=== PATIENT | male | born 1985 | race Caucasian/White ===

== ENCOUNTER 2017-02-03 13:49 | Inpatient (IN) | payer MEDICAID, OTHER ==
[~2017-02-03] VITALS: Ht 195.6 cm; Wt 127.9 kg
[2017-02-03] MEDS ORDERED: PANTOPRAZOLE 40 MG INJ IV STA (14:29)
[2017-02-03] MEDS ORDERED: SOD CHLORIDE 0.9% 1,000 ML IV STA (14:29)
[2017-02-03] MEDS ORDERED: ONDANSETRON 4 MG INJ IV STA (15:17)
[2017-02-03] MEDS ORDERED: PANTOPRAZOLE IV 80 MG in SOD CHLORIDE 0.9% 100 ML IV STA (15:27)
[2017-02-03 15:47] LABS: ADD SCAN DIFF NO
[2017-02-03 15:50] LABS: BASOPHILS % 0.1 % (0.0-2.0); EOSINOPHILS % 0.1 % (0.0-7.0); HEMATOCRIT 38.4 % (42.0-52.0); HEMOGLOBIN 12.5 g/dl (14.0-18.0); LYMPHOCYTES # 1.3 10^3/ul (0.8-2.9); LYMPHOCYTES % 15.7 % (15.0-51.0); MEAN CORPUSCULAR HEMOGLOBIN 31.2 pg (29.0-33.0); MEAN CORPUSCULAR HGB CONC 32.6 g/dl (32.0-37.0); MEAN CORPUSCULAR VOLUME 95.8 fl (82.0-101.0); MEAN PLATELET VOLUME 8.8 fl (7.4-10.4); MONOCYTE # 0.5 10^3/ul (0.3-0.9); MONOCYTES % 5.8 % (0.0-11.0); NEUTROPHIL # 6.6 10^3/ul (1.6-7.5); NEUTROPHILS % 77.9 % (39.0-77.0); PLATELET COUNT 298 10^3/UL (140-415); RED BLOOD COUNT 4.01 10^6/ul (4.70-6.10); RED CELL DISTRIBUTION WIDTH 12.6 % (11.5-14.5); WHITE BLOOD COUNT 8.4 10^3/ul (4.8-10.8)
[2017-02-03 16:00] LABS: INR 1.08; PT RATIO 1.1
[2017-02-03] MEDS ORDERED: PANTOPRAZOLE 40 MG INJ IV ONE (16:00)
[2017-02-03 16:01] LABS: PARTIAL THROMBOPLASTIN TIME 24.3 Sec (25.0-35.0)
[2017-02-03 16:02] LABS: ALBUMIN 3.5 g/dl (3.3-4.9); CHLORIDE 109 mmol/L (97-110); SODIUM 147 mmol/L (135-144)
[2017-02-03 16:03] LABS: POTASSIUM 4.3 mmol/L (3.5-5.1)
[2017-02-03 16:05] LABS: ALKALINE PHOSPHATASE 51 IU/L (42-121); ANION GAP 16 (8-16); ASPARTATE AMINO TRANSFERASE 19 IU/L (15-46); BILIRUBIN,INDIRECT 0.4 mg/dl (0-1.1); BILIRUBIN,TOTAL 0.4 mg/dl (0.2-1.3); BLOOD UREA NITROGEN 33 mg/dl (7-20); CARBON DIOXIDE 26 mmol/L (21-31); CREATININE 0.89 mg/dl (0.61-1.24); GLUCOSE 105 mg/dl (70-220); TOTAL PROTEIN 6.4 g/dl (6.1-8.1)
[2017-02-03 16:06] LABS: ALANINE AMINOTRANSFERASE 35 IU/L (13-69); CALCIUM 8.3 mg/dl (8.4-10.2)
[2017-02-03 16:23] LABS: TROPONIN-I < 0.012 ng/ml (0.00-0.12)
[2017-02-03 18:00] VITALS: TEMP 98
--- NOTE | 2017-02-03 18:58 | ERA ---
ER Documentation Chief Complaint Date/Time DATE: 02/03/17 TIME: 18:55 Chief Complaint HEMATESIS X 1 TODAY HPI Patient is a 31-year-old male with back pain who presents with vomiting. The patient vomit once this morning and says that he vomited "lots of blood". He has had nausea. He has never had this before. He denies rectal bleeding. He almost passed out at home. He called 911 and was brought in by ambulance. He says that he donates plasma 1-2 times per week. He does not currently have a primary doctor. ROS All systems reviewed and are negative except as per history of present illness. Medications Home Meds No Active Prescriptions or Reported Meds Allergies Allergies: Coded Allergies: No Known Allergies (Unverified Allergy, Unknown, 02/03/17) PMhx/Soc Medical and Surgical Hx: pt denies Medical Hx, pt denies Surgical Hx Hx Alcohol Use: Yes Hx Substance Use: Yes Hx Tobacco Use: No Smoking Status: Never smoker FmHx Family History: No diabetes Physical Exam Vitals Vital Signs Date Time Temp Pulse Resp B/P Pulse Ox O2 Delivery O2 Flow Rate FiO2 02/03/17 16:00 98.0 96 15 124/67 97 Room Air 02/03/17 14:43 Nasal Cannula 2 02/03/17 14:21 98.1 113 18 106/58 99 Physical Exam Const: Mild distress Head: Atraumatic Eyes: Normal Conjunctiva ENT: Normal External Ears, Nose and Mouth. Neck: Full range of motion..~ No meningismus. Resp: Clear to auscultation bilaterally Cardio: Tachycardic rate without murmur Abd: Soft, non tender, non distended. Normal bowel sounds Skin: Pale Back: No midline or flank tenderness Ext: No cyanosis, or edema Neur: Awake and alert Psych: Normal Mood and Affect Result Diagram: 02/03/17 1530 02/03/17 1530 Results 24 hrs Laboratory Tests Test 02/03/17 15:30 Activated Partial Thromboplast Time 24.3Sec Alanine Aminotransferase (ALT/SGPT) 35IU/L Albumin 3.5g/dl Albumin/Globulin Ratio 1.20 Alkaline Phosphatase 51IU/L Anion Gap 16 Aspartate Amino Transf (AST/SGOT) 19IU/L Basophils # 0.010^3/ul Basophils % 0.1% Blood Urea Nitrogen 33mg/dl Calcium Level 8.3mg/dl Carbon Dioxide Level 26mmol/L Chloride Level 109mmol/L Creatinine 0.89mg/dl Direct Bilirubin 0.00mg/dl Eosinophils # 0.010^3/ul Eosinophils % 0.1% Globulin 2.90g/dl Glucose Level 105mg/dl Hematocrit 38.4% Hemoglobin 12.5g/dl INR International Normalized Ratio 1.08 Indirect Bilirubin 0.4mg/dl Lymphocytes # 1.310^3/ul Lymphocytes % 15.7% Mean Corpuscular Hemoglobin 31.2pg Mean Corpuscular Hemoglobin Concent 32.6g/dl Mean Corpuscular Volume 95.8fl Mean Platelet Volume 8.8fl Monocytes # 0.510^3/ul Monocytes % 5.8% Neutrophils # 6.610^3/ul Neutrophils % 77.9% Nucleated Red Blood Cells # 0.010^3/ul Nucleated Red Blood Cells % 0.0/100WBC Platelet Count 83400^3/UL Potassium Level 4.3mmol/L Prothrombin Time 14.0Sec Prothrombin Time Ratio 1.1 Red Blood Count 4.0110^6/ul Red Cell Distribution Width 12.6% Sodium Level 147mmol/L Total Bilirubin 0.4mg/dl Total Protein 6.4g/dl Troponin I < 0.012ng/ml White Blood Count 8.410^3/ul Current Medications Medications (Trade) Dose Ordered Sig/Unique Route PRN Reason Start Time Stop Time Status Last Admin Dose Admin Sodium Chloride (NS) 1,000 ml @ 1,000 mls/hr Q1H STAT IV 02/03/17 14:29 02/03/17 15:28 DC 02/03/17 15:17 Pantoprazole (Protonix Iv) 40 mg ONCE STAT IV 02/03/17 14:29 02/03/17 14:30 DC 02/03/17 16:00 Ondansetron HCl 4 mg 4 mg ONCE STAT IV 02/03/17 15:17 02/03/17 15:18 DC 02/03/17 15:34 Pantoprazole/ Sodium Chloride (Protonix Iv/NS) 100 ml @ 10 mls/hr ONCE STAT IV 02/03/17 15:27 02/04/17 01:26 02/03/17 16:00 Pantoprazole (Protonix Iv) 40 mg ONCE ONCE IV 02/03/17 16:00 02/03/17 16:01 DC 02/03/17 16:03 Procedures/MDM EKG read by me: Rate/Rhythm: Sinus tachycardia rate of 119 Intervals: Normal Impression: Tachycardia without evidence of ischemia Smoking Cessation Therapy: Pt. was lectured for greater than 3 minutes on the health risks of continued smoking and the benefits of cessation. Patient is a 31-year-old male who presents with vomiting. He vomited a large amount of blood in the emergency department that was witnessed by myself and staff. It is dark red blood and I am concerned about a potential upper GI bleed such as gastric ulcer versus gastritis. He will need admission to the hospital. Initially the patient was admitted to the intensive care unit but the patient has been in the emergency department for a number of hours and is stable and I believe downgraded to telemetry but would be appropriate. The patient is on a Protonix drip and had been given a Protonix bolus. The patient has a hemoglobin of 12.5 and a BUN creatinine ratio greater than 20. The patient will likely need GI consultation which the panel team can obtain. The patient will be admitted to Dr. Odonnell from the panel team as the patient has never been admitted before. He may benefit from endoscopy versus colonoscopy versus both. Critical Care: Time: 35 minutes excluding all billable procedures. Treatments/Evaluations: Close monitoring and treatment of unstable vital signs, cardiorespiratory, and neurologic status, while maintaining tight balance of fluid, respiratory, and cardiac interventions. Departure Diagnosis: Primary Impression: GI bleed Qualified Code: K92.2 - Gastrointestinal hemorrhage, unspecified gastrointestinal hemorrhage type Additional Impressions: Anemia Qualified Code: D64.9 - Anemia, unspecified type Hematemesis Qualified Code: K92.0 - Hematemesis with nausea Condition: Serious DARIO OSULLIVAN MD Feb 03, 2017 18:58
--- NOTE | 2017-02-03 19:13 | HP ---
Date/Time of Note Date/Time of Note DATE: 02/03/17 TIME: 19:06 Assessment/Plan VTE Prophylaxis VTE Prophylaxis Intervention: SCD's Assessment/Plan Assessment/Plan 31 yo M with 1. GI bleed / Hematemsis : acute 2. Near Syncopy 2/2 #1 3. Symptomatic Anemia 2/2 #1: tachycardia 4. Frequent alcohol / marijuana use PLAN: * admit for close monitoring / serial H / H / GI consult for possible endoscopy * IV Protonix / NPO / IVF / Banana bag * Supportive care * Transfusion of blood products PRN PROPHYLAXIS: ambulation HPI/ROS Admit Date/Time Admit Date/Time 02/03/17 Hx of Present Illness 31 yo M with no significant PMH who presents to ER with a hx of vomiting a mixture of dark red and bright red blood products. Vomiting was witnessed in ER and was said to be "a lot ". Patient does drink alcohol regularly but does not think he has an alcohol problem. He has had no bleeding per rectum or black stools. No hx of similar in the past. he does not mild epigastric tenderness. ROS 12 point review if systems was done and pertinent findings are as noted. Constitutional: fatigue, No febrile Eyes: no complaints ENT: no complaints Respiratory: No cough, No pleuritic pain, No shortness of breath, No wheezing Cardiovascular: lightheadedness, palpitations, No chest pain, No orthopenea, No paroxysmal nocturnal dyspnea Gastrointestinal: blood, nausea, passing stool, vomiting, No constipation, No diarrhea, No flatus Genitourinary: No bleeding, No discharge, No dysuria, No flank pain, No hematuria Neurologic: other (near syuncope), No focal-weakness, No headache, No syncope PMH/Family/Social Past Medical History Medical History: no pertinent history Past Surgical History Past Surgical Hx: no surgical history Family History Significant Family History: no pertinent family hx Social History Alcohol Use: occasionally Smoking Status: Never smoker Drug Use: marijuana Exam/Review of Systems Vital Signs Vitals Vital Signs Date Time Temp Pulse Resp B/P Pulse Ox O2 Delivery O2 Flow Rate FiO2 02/03/17 16:00 98.0 96 15 124/67 97 Room Air 02/03/17 14:43 2 Exam Constitutional: alert, oriented Psych: anxiety Head: normocephalic Eyes: PERRL, No icteric, No nl sclera (pale) ENMT: nl external ears & nose Neck: supple Respiratory: clear to auscultation, normal air movement Cardiovascular: nl pulses, No regular rate and rhythm (tachycardia) Gastrointestinal: bowel sounds, soft, tender Musculoskeletal: nl extremities to inspection Neurological: nl mental status Skin: No rash or lesions Labs Result Diagram: 02/03/17 1530 02/03/17 1530 AGNES LE Feb 03, 2017 19:13
[2017-02-03 19:49] LABS: HEMATOCRIT 35.6 % (42.0-52.0); HEMOGLOBIN 11.7 g/dl (14.0-18.0)
[2017-02-03] MEDS ORDERED: ONDANSETRON 4 MG INJ IV PRN (20:30)
[2017-02-03] MEDS ORDERED: HYDROCODONE/APAP (5/325) TAB PO PRN (20:30)
[2017-02-03 21:08] VITALS: BP 120/70; RESP 20
[2017-02-03 21:09] VITALS: PULSE 100
[2017-02-03 21:30] VITALS: BP 122/66; PULSE 108; RESP 20
[2017-02-03] MEDS: DOCUSATE SODIUM 100 MG CAP PO SCH (21:47)
[2017-02-03 22:32] VITALS: Ht 195.6 cm; Wt 127.9 kg
[2017-02-04] VITALS (11 sets, daily range): BP systolic 115–139; BP diastolic 66–82; PULSE 60–100; RESP 18–20
[2017-02-04] MEDS: PANTOPRAZOLE 40 MG INJ IV SCH ×2 (05:33→17:42)
[2017-02-04] MEDS: DOCUSATE SODIUM 100 MG CAP PO SCH ×2 (08:59→21:56)
[2017-02-04 09:17] LABS: ADD SCAN DIFF NO
[2017-02-04 09:22] LABS: BASOPHILS % 0.2 % (0.0-2.0); EOSINOPHILS # 0.1 10^3/ul (0.0-0.5); EOSINOPHILS % 1.1 % (0.0-7.0); HEMOGLOBIN 10.8 g/dl (14.0-18.0); LYMPHOCYTES # 2.3 10^3/ul (0.8-2.9); MEAN CORPUSCULAR HGB CONC 33.8 g/dl (32.0-37.0); MEAN CORPUSCULAR VOLUME 94.7 fl (82.0-101.0); MEAN PLATELET VOLUME 8.8 fl (7.4-10.4); MONOCYTE # 0.4 10^3/ul (0.3-0.9); MONOCYTES % 6.7 % (0.0-11.0); NEUTROPHIL # 2.9 10^3/ul (1.6-7.5); NEUTROPHILS % 51.8 % (39.0-77.0); PLATELET COUNT 248 10^3/UL (140-415); RED BLOOD COUNT 3.38 10^6/ul (4.70-6.10); RED CELL DISTRIBUTION WIDTH 12.7 % (11.5-14.5); WHITE BLOOD COUNT 5.7 10^3/ul (4.8-10.8)
[2017-02-04] MEDS: MULTIVITAMINS 10 ML, THIAMINE 100 MG, FOLIC ACID 1 MG in SOD CHLORIDE 0.9% 1,000 ML IVPB SCH (09:28)
[2017-02-04 09:31] LABS: INR 1.06; PARTIAL THROMBOPLASTIN TIME 23.6 Sec (25.0-35.0); PROTIME 13.8 Sec (12.2-14.2); PT RATIO 1.1
[2017-02-04 09:41] LABS: POTASSIUM 3.9 mmol/L (3.5-5.1)
[2017-02-04 09:43] LABS: BILIRUBIN,INDIRECT 0.3 mg/dl (0-1.1); BILIRUBIN,TOTAL 0.3 mg/dl (0.2-1.3); CALCIUM 8.2 mg/dl (8.4-10.2); CREATININE 0.86 mg/dl (0.61-1.24); TOTAL PROTEIN 5.7 g/dl (6.1-8.1)
--- NOTE | 2017-02-04 11:37 | PN ---
DATE: 02/04/2017 SUBJECTIVE: No acute events overnight. Awaiting EGD for later today. No signs of any upper GI ble eding presently. OBJECTIVE: VITAL SIGNS: Stable. GENERAL: The patient is lying in bed, answering questions. No acute distress. HEENT: Pupils equal, round, react to light. Extraocular muscles intact. NECK: Supple. LUNGS: Clear to auscultation bilaterally. CARDIOVASCULAR: S1, S2 heard. ABDOMEN: Soft, nontender, nondistended. Normal bowel sounds. No guarding. MUSCULOSKELETAL: No lower extremity bilaterally. NEUROLOGIC: No focal deficits. LABORATORY DATA: Stable including hemoglobin of 10.8, hematocrit 32.0. ASSESSMENT AND PLAN: A 31-year-old male with hematemesis and history of alcohol abuse. 1. Hematemesis. Again, hemoglobin is presently stable. Again, continue n.p.o. and PPI IV b.i.d. Follow GI recommendations. Awaiting EGD for later today. Follow up post-procedure recommendations. Transfuse blood as necessary. No signs of any need for now. 2. History of alcohol abuse. Continue banana bag. Monitor for signs of DTs. 3. GI prophylaxis. PPI. 4. Deep venous thrombosis prophylaxis. Again, avoid all anticoagulants, just SCDs for now and ambu lation. 5. Symptomatic anemia. Again hemoglobin stable. Continue to monitor for now. No need for transfu barbara at this time. Dictated By: BASSEM CHAPIN Conf#: [id number] DID#: [id number]
--- NOTE | 2017-02-04 18:28 | CONS ---
Date/Time of Note Date/Time of Note DATE: 02/04/17 TIME: 18:21 Assessment/Plan Assessment/Plan Additional Assessment/Plan Assessment: * GI bleeding/hematemesis * Doubt variceal, rule out peptic ulcer disease/GERD versus others * Moderate anemia * History of alcohol and marijuana abuse Plan: * N.p.o. after 10 AM for EGD in the early afternoon * Patient was informed of the procedure the need to remain n.p.o., potential risks, benefits and alternatives. He is agreeable to proceed Consultation Date/Type/Reason Admit Date/Time 02/03/17 Date of Consultation: Feb 04, 2017 Type of Consultation: Gastroenterology Reason for Consultation * Hematemesis 32-year-old man with history of alcohol and marijuana abuse, presented to the emergency room with hematemesis, no melena or hematochezia. Moderate epigastric abdominal pain. Persistent nausea. No ulcerogenic drugs. Workup disclosed moderate anemia. Patient is hospitalized for further evaluation. He was contacted this morning and ordered patient be kept n.p.o. after 10 AM for possible endoscopy in the afternoon. At this time the patient is brought in for possible endoscopic evaluation unfortunately through today approximately an hour prior he was brought in chicken wings by family members and nursing failed to stop him from eating therefore plan endoscopic evaluation will not take place today and will have to be postponed until tomorrow. Locally the patient has remained stable with no further episodes of hematemesis and with only a slight drop in hemoglobin hematocrit. The patient was emphatically advised to remain n.p.o. so that we can complete his evaluation tomorrow. He appears to understand and is agreeable. Constitutional: improved, no complaints Eyes: no complaints ENT: no complaints Respiratory: No cough, No pleuritic pain, No shortness of breath, No wheezing Cardiovascular: lightheadedness, palpitations, No chest pain, No orthopenea, No paroxysmal nocturnal dyspnea Gastrointestinal: blood, nausea, other (Hematemesis), passing stool, vomiting, No constipation, No diarrhea, No flatus Genitourinary: no complaints Musculoskeletal: no complaints Skin: no complaints Neurologic: no complaints, other (near syuncope), No focal-weakness, No headache, No syncope Endocrine: no complaints Lymphatic: no complaints Psychological: anxiety Immunologic: no complaints Past Medical History Medical History: no pertinent history Past Surgical History Past Surgical Hx: no surgical history Social History Alcohol Use: occasionally Smoking Status: Never smoker Drug Use: marijuana Exam/Review of Systems Vital Signs Vitals Vital Signs Date Time Temp Pulse Resp B/P Pulse Ox O2 Delivery O2 Flow Rate FiO2 02/04/17 16:11 98 02/04/17 16:09 98.0 20 129/76 96 02/03/17 21:30 Room Air 02/03/17 14:43 2 Intake and Output 02/03/17 02/03/17 02/04/17 15:00 23:00 07:00 Intake Total 300 ml Output Total 4 ml Balance 296 ml Exam Constitutional: alert, obese, oriented, well developed Psych: nl mood/affect, no complaints Head: atraumatic, normocephalic Eyes: EOMI, PERRL, nl conjunctiva, nl lids, nl sclera ENMT: nl external ears & nose, nl lips & teeth, nl nasal mucosa & septum Neck: non-tender, supple Respiratory: clear to auscultation, normal air movement Cardiovascular: nl pulses, regular rate and rhythm Gastrointestinal: bowel sounds, nl liver, spleen, non-tender, soft, tender ( Epigastric tenderness, moderate), No ascites, No mass, No rebound or guarding Musculoskeletal: nl extremities to inspection, nl gait and stance Extremities: normal pulses Neurological: TREE PRUNER II-XII intact, nl mental status, nl speech, nl strength Skin: nl turgor, No rash or lesions Lymph: nl lymph nodes Results Result Diagram: 02/04/17 0900 02/04/17 0900 Results 24 hrs Laboratory Tests Test 02/03/17 19:40 02/04/17 09:00 Hematocrit 35.6 L 32.0 L Hemoglobin 11.7 L 10.8 L Magnesium Level 1.9 Activated Partial Thromboplast Time 23.6 L Alanine Aminotransferase (ALT/SGPT) 30 Albumin 3.0 L Alkaline Phosphatase 48 Anion Gap 12 Aspartate Amino Transf (AST/SGOT) 17 Basophils # 0.0 Basophils % 0.2 Blood Urea Nitrogen 25 H Calcium Level 8.2 L Carbon Dioxide Level 27 Chloride Level 109 Creatinine 0.86 Direct Bilirubin 0.00 Eosinophils # 0.1 Eosinophils % 1.1 Glucose Level 88 Hemoglobin A1c 5.2 INR International Normalized Ratio 1.06 Indirect Bilirubin 0.3 Lipase 18 L Lymphocytes # 2.3 Lymphocytes % 40.0 Mean Corpuscular Hemoglobin 32.0 Mean Corpuscular Hemoglobin Concent 33.8 Mean Corpuscular Volume 94.7 Mean Platelet Volume 8.8 Monocytes # 0.4 Monocytes % 6.7 Neutrophils # 2.9 Neutrophils % 51.8 Nucleated Red Blood Cells # 0.0 Nucleated Red Blood Cells % 0.0 Platelet Count 248 Potassium Level 3.9 Prothrombin Time 13.8 Prothrombin Time Ratio 1.1 Red Blood Count 3.38 L Red Cell Distribution Width 12.7 Sodium Level 144 Total Bilirubin 0.3 Total Protein 5.7 L White Blood Count 5.7 # Medications Medications Current Medications Multivitamins/ Thiamine HCl/ Folic Acid/Sodium Chloride (Mvi-12 Adult/ Vitamin B1/Folic Acid/NS) 1,011.2 ml @ 125 mls/ hr DAILY@09 IVPB Last administered on 02/04/17 09:28; Admin Dose 125 MLS/HR; Start 02/04/17 at 09:00 Pantoprazole (Protonix Iv) 40 mg BID@06,18 IV Last administered on 02/04/17 17 :42; Admin Dose 40 MG; Start 02/04/17 at 06:00 Acetaminophen/ Hydrocodone Bitart ([place] (5/325)) 1 tab Q6H PRN PO pain; Start 02/03/17 at 20:30 Docusate Sodium (Colace) 100 mg BID PO Last administered on 02/04/17 08:59; Admin Dose 100 MG; Start 02/03/17 at 21:00 Ondansetron HCl (Zofran Inj) 4 mg Q6H PRN IV NAUSEA AND/OR VOMITING; Start 11/10 at 20:30 IKE CHUN MD Feb 04, 2017 18:28
[2017-02-05] VITALS (14 sets, daily range): BP systolic 108–124; BP diastolic 56–77; PULSE 69–90; RESP 14–21
[2017-02-05] MEDS: PANTOPRAZOLE 40 MG INJ IV SCH ×3 (06:22→18:08)
[2017-02-05] MEDS: MULTIVITAMINS 10 ML, THIAMINE 100 MG, FOLIC ACID 1 MG in SOD CHLORIDE 0.9% 1,000 ML IVPB SCH (08:35)
[2017-02-05] MEDS: DOCUSATE SODIUM 100 MG CAP PO SCH ×2 (08:35→21:00)
[2017-02-05 10:04] LABS: ADD SCAN DIFF NO
[2017-02-05 10:23] LABS: BASOPHILS % 0.2 % (0.0-2.0); EOSINOPHILS # 0.1 10^3/ul (0.0-0.5); EOSINOPHILS % 2.5 % (0.0-7.0); HEMOGLOBIN 9.9 g/dl (14.0-18.0); LYMPHOCYTES # 1.8 10^3/ul (0.8-2.9); LYMPHOCYTES % 37.1 % (15.0-51.0); MEAN CORPUSCULAR HEMOGLOBIN 30.9 pg (29.0-33.0); MEAN CORPUSCULAR VOLUME 93.8 fl (82.0-101.0); MEAN PLATELET VOLUME 9.4 fl (7.4-10.4); MONOCYTE # 0.3 10^3/ul (0.3-0.9); MONOCYTES % 6.6 % (0.0-11.0); NEUTROPHIL # 2.6 10^3/ul (1.6-7.5); NEUTROPHILS % 53.2 % (39.0-77.0); PLATELET COUNT 229 10^3/UL (140-415); POTASSIUM 3.9 mmol/L (3.5-5.1); RED CELL DISTRIBUTION WIDTH 12.4 % (11.5-14.5); WHITE BLOOD COUNT 4.8 10^3/ul (4.8-10.8)
[2017-02-05 10:25] LABS: CREATININE 0.65 mg/dl (0.61-1.24)
[2017-02-05 10:26] LABS: CALCIUM 7.6 mg/dl (8.4-10.2)
--- NOTE | 2017-02-05 15:27 | PN ---
Date/Time of Note Date/Time of Note DATE: 02/05/17 TIME: 15:24 Assessment/Plan VTE Prophylaxis VTE Prophylaxis Intervention: SCD's Lines/Catheters IV Catheter Type (from Nrs): Peripheral IV Urinary Cath still in place: No Assessment/Plan Assessment/Plan 1. GI bleed, on PPI, follow up with EGD today 2. Abdominal pain, CT scan 3. Symptomatic Anemia due to GI bleeding, will start iron supplement 4. Frequent alcohol / marijuana use Subjective 24 Hr Interval Summary Free Text/Dictation epigastric pain, but no nausea or vomiting Exam/Review of Systems Vital Signs Vitals Vital Signs Date Time Temp Pulse Resp B/P Pulse Ox O2 Delivery O2 Flow Rate FiO2 02/05/17 15:18 78 02/05/17 11:47 98.2 18 124/77 97 02/03/17 21:30 Room Air 02/03/17 14:43 2 Intake and Output 02/04/17 02/04/17 02/05/17 15:00 23:00 07:00 Intake Total 1011.2 ml Balance 1011.2 ml Exam Constitutional: alert, oriented, well developed Psych: nl mood/affect, no complaints Head: atraumatic, normocephalic Eyes: EOMI, PERRL, nl conjunctiva, nl lids ENMT: nl external ears & nose, nl lips & teeth, nl nasal mucosa & septum Neck: non-tender, supple Respiratory: clear to auscultation, normal air movement, No congested cough, No crackles/rales, No diminished breath sounds, No intercostal retraction, No labored breathing, No other, No respirations, No tactile fremitus, No wheezing Cardiovascular: nl pulses, regular rate and rhythm, No S3, No S4, No bruits, No diastolic murmur, No edema, No gallop, No irregular rhythm, No jugular venous distention (JVD), No murmurs/extra sounds, No other, No rub, No systolic murmur Gastrointestinal: nl liver, spleen, soft, tender (epigastric and right upper abdominal tenderness), No ascites, No bowel sounds, No distended, No firm, No hepatomegaly, No mass , No other, No rebound or guarding, No splenomegaly, No surgical scars Musculoskeletal: nl extremities to inspection Extremities: normal pulses, No calf tenderness, No clubbing, No cyanosis, No edema, No other, No palpable cord, No pitting pedal edema, No tenderness Neurological: BOAT BUILDER II-XII intact, nl mental status, nl speech, nl strength Skin: nl turgor Lymph: nl lymph nodes Results Result Diagram: 02/05/1730 02/05/17 0930 Results 24 hrs Laboratory Tests Test 02/05/17 09:30 Anion Gap 12 Basophils # 0.0 Basophils % 0.2 Blood Urea Nitrogen 14 # Calcium Level 7.6 L Carbon Dioxide Level 28 Chloride Level 106 Creatinine 0.65 Eosinophils # 0.1 Eosinophils % 2.5 Glucose Level 80 Hematocrit 30.0 L Hemoglobin 9.9 L Lipase 31 Lymphocytes # 1.8 Lymphocytes % 37.1 Mean Corpuscular Hemoglobin 30.9 Mean Corpuscular Hemoglobin Concent 33.0 Mean Corpuscular Volume 93.8 Mean Platelet Volume 9.4 Monocytes # 0.3 Monocytes % 6.6 Neutrophils # 2.6 Neutrophils % 53.2 Nucleated Red Blood Cells # 0.0 Nucleated Red Blood Cells % 0.0 Platelet Count 229 Potassium Level 3.9 Red Blood Count 3.20 L Red Cell Distribution Width 12.4 Sodium Level 142 White Blood Count 4.8 Medications Medications Current Medications Multivitamins/ Thiamine HCl/ Folic Acid/Sodium Chloride (Mvi-12 Adult/ Vitamin B1/Folic Acid/NS) 1,011.2 ml @ 125 mls/ hr DAILY@09 IVPB Last administered on 02/05/17 08:35; Admin Dose 125 MLS/HR; Start 02/04/17 at 09:00 Pantoprazole (Protonix Iv) 40 mg BID@06,18 IV Last administered on 02/05/17 06 :22; Admin Dose 40 MG; Start 02/04/17 at 06:00 Acetaminophen/ Hydrocodone Bitart ([place] (5/325)) 1 tab Q6H PRN PO pain; Start 02/03/17 at 20:30 Docusate Sodium (Colace) 100 mg BID PO Last administered on 02/05/17 08:35; Admin Dose 100 MG; Start 02/03/17 at 21:00 Ondansetron HCl (Zofran Inj) 4 mg Q6H PRN IV NAUSEA AND/OR VOMITING; Start 11/10 at 20:30 LUKE FOFANA MD Feb 05, 2017 15:27
[2017-02-05] MEDS ORDERED: BARIUM SULF 2% 450 ML BTL (BERRY SMOOTHIE) PO ONE (15:30)
[2017-02-05] MEDS ORDERED: LIDOCAINE 2% (SDV) 5 ML INJ ONE (16:55)
[2017-02-05] MEDS ORDERED: PROPOFOL 40 ML ONE (16:55)
--- NOTE | 2017-02-05 17:44 | GILP ---
DATE OF PROCEDURE: PROCEDURE: Esophagogastroduodenoscopy with biopsies. SURGEON: Ike Rodarte MD. BRIEF HISTORY AND INDICATIONS: The patient is being evaluated for anemia and evidence of gastroint estinal bleeding. PREMEDICATION: Monitored anesthesia care by anesthesiologist. INSTRUMENT USED: Olympus panendoscope. TECHNIQUE: After informed consent, with the patient/relatives understanding the procedure, its indic ations, potential risks and complications, including but not limited to: allergic reaction, bleeding , perforation or infection, and after all pertinent questions were answered to the patients satisfac tion, the patient/relatives signed witnessed informed consent. Following this, premedication was ad ministered slowly IV push under careful cardiovascular and respiratory monitoring with pulse oximetr y, automatic blood pressure and air sampling and monitoring. Once the sedative effect was achieved the patient was p lace in the left lateral decubitus, the panendoscope was introduced and advanced under visual contro l. Careful examination of the upper gastrointestinal tract, both on insertion as well as withdrawal of the instrument disclosed the following findings: ESOPHAGUS: The distal esophagus shows severe erythema and edema of the mucosa with multiple ulcerat ions. No evidence of active bleeding or stigmata to suggest high likelihood of rebleeding. STOMACH: Upon entrance to the stomach, air was insufflated, the gastric meade distended normally. There is erythema and edema of the mucosa of a moderate degree. Biopsies were obtained to rule out H. pylori infection. PYLORUS: The pylorus appears patent and within normal limits, with no evidence of gastric outlet ob struction. DUODENUM: The duodenal mucosa was carefully examined in the duodenal bulb as well as the second por tion of the duodenum and appears unremarkable with no evidence of duodenitis, ulcer or neoplasm. The instrument was then withdrawn, the patient tolerated the procedure well and was transferred out of the endoscopy suite awake, and in good condition to continue recovery under observation IMPRESSION: 1. Erosive/ulcerative esophagitis. 2. Gastritis, rule out Helicobacter pylori infection, biopsies obtained. PLAN: The patient will be treated with PPI double dose. Further recommendation will depend on the patient's clinical course as well as review of biopsies. Dictated By: IKE RODARTE MS/NTS Conf#: [id number] DID#: [id number] CC: IKE RODARTE;*EndCC*
[2017-02-06] VITALS (7 sets, daily range): BP systolic 118–129; BP diastolic 56–65; PULSE 74–97; RESP 14–16
[2017-02-06] MEDS: PANTOPRAZOLE 40 MG INJ IV SCH (06:39)
--- NOTE | 2017-02-06 06:49 | RADRPT ---
PROCEDURE: CT Abdomen and pelvis without contrast. CLINICAL INDICATION: Abdominal pain TECHNIQUE: CT scan of the abdomen and pelvis with contrast was performed on a multidetector high-r esolution CT scan. . Coronal and sagittal reformatted images were obtained from the axial source i mages. Standard CT scan of the abdomen pelvis without contrast protocols were performed. The total exam CTDI equals 23.26 mGy and the total exam DLP equals 1530.93 mGy-cm. One or more of the following dose reduction techniques were used: - Automated exposure control. - Adjustment of the mA and/or kV according to patient size. Use of iterative reconstruction technique. COMPARISON: None. FINDINGS: The appendix is visualized in the diameter is borderline measuring 0.7-0.8 cm. Note that there is f airly diffuse gas throughout the lumen of the appendix. The appendiceal wall is borderline thickene d. There is no definite periappendiceal induration or fluid. Early acute appendicitis is not exclu ded. There is diverticulosis of the transverse descending and to a greater extent sigmoid colon but no CT scan evidence of diverticulitis. Remainder of the colon is unremarkable. There is a small hi atal hernia with the stomach otherwise unremarkable. The small bowel is unremarkable. Negative for intra-abdominal free air free fluid abscesses or lymphadenopathy. There are nonspecific lymph nodes in the right lower quadrant mesentery which may represent lymphadenitis. The liver spleen pancreas adrenal glands and kidneys are normal in size configuration without focal lesions. There is no evidence of calcified urinary calculi or obstructive uropathy. The urinary bl adder is unremarkable. The gallbladder is unremarkable and there is no evidence of biliary ductal d ilation. Lung bases are clear. There is an incompletely demonstrated S-shaped thoracic lumbar scoliosis. Th ere are no acute osseous findings. No osteoblastic or osteolytic lesions demonstrated. There is a small fat containing right inguinal hernia but no herniated bowel or strangulation. IMPRESSION: 1. The appendix demonstrates borderline diameter with diffuse gas throughout the lumen and borderli ne thickening of the appendiceal wall and no evidence of periappendiceal induration or fluid. Early acute appendicitis is not excluded and recommend clinical correlation. 2. No evidence of intra-abdominal free air fluid abscesses or lymphadenopathy. There are nonspecif ic and nodes in the right lower quadrant mesentery consistent with lymphadenitis. 3. No evidence of calcified urinary calculi or obstructive uropathy. 4. Colonic diverticulosis with no CT scan evidence of diverticulitis. 5. Small right inguinal fat-containing hernia without herniated hour strangulation. RPTAT:AAJJ Physician Madhu Date Time Electronically viewed and signed by Jean Pierre Montes Physician on 02/06/2017 06:48 BM/
[2017-02-06 08:15] LABS: ADD SCAN DIFF NO
[2017-02-06 08:20] LABS: BASOPHILS % 0.2 % (0.0-2.0); EOSINOPHILS # 0.1 10^3/ul (0.0-0.5); EOSINOPHILS % 2.4 % (0.0-7.0); HEMATOCRIT 28.7 % (42.0-52.0); HEMOGLOBIN 9.6 g/dl (14.0-18.0); LYMPHOCYTES # 1.7 10^3/ul (0.8-2.9); LYMPHOCYTES % 36.5 % (15.0-51.0); MEAN CORPUSCULAR HEMOGLOBIN 31.4 pg (29.0-33.0); MEAN CORPUSCULAR HGB CONC 33.4 g/dl (32.0-37.0); MEAN CORPUSCULAR VOLUME 93.8 fl (82.0-101.0); MEAN PLATELET VOLUME 8.8 fl (7.4-10.4); MONOCYTE # 0.3 10^3/ul (0.3-0.9); MONOCYTES % 6.3 % (0.0-11.0); NEUTROPHIL # 2.5 10^3/ul (1.6-7.5); NEUTROPHILS % 54.4 % (39.0-77.0); PLATELET COUNT 223 10^3/UL (140-415); RED BLOOD COUNT 3.06 10^6/ul (4.70-6.10); RED CELL DISTRIBUTION WIDTH 12.5 % (11.5-14.5); WHITE BLOOD COUNT 4.6 10^3/ul (4.8-10.8)
[2017-02-06 08:53] LABS: ALBUMIN 2.9 g/dl (3.3-4.9)
[2017-02-06 08:54] LABS: POTASSIUM 4.2 mmol/L (3.5-5.1)
[2017-02-06 08:56] LABS: ALBUMIN/GLOBULIN RATIO 1.11; CREATININE 0.78 mg/dl (0.61-1.24); TOTAL PROTEIN 5.5 g/dl (6.1-8.1)
[2017-02-06 08:57] LABS: CALCIUM 7.9 mg/dl (8.4-10.2)
[2017-02-06] MEDS: DOCUSATE SODIUM 100 MG CAP PO SCH (09:26)
[2017-02-06] MEDS: MULTIVITAMINS 10 ML, THIAMINE 100 MG, FOLIC ACID 1 MG in SOD CHLORIDE 0.9% 1,000 ML IVPB SCH (09:26)
--- NOTE | 2017-02-06 11:09 | CONS ---
Date/Time of Note Date/Time of Note DATE: 02/06/17 TIME: 11:08 Assessment/Plan Assessment/Plan Additional Assessment/Plan Assessment: * GI bleeding/hematemesis * EGD: * Moderate anemia * History of alcohol and marijuana abuse Plan: * N.p.o. after 10 AM for EGD in the early afternoon * Patient was informed of the procedure the need to remain n.p.o., potential risks, benefits and alternatives. He is agreeable to proceed Consultation Date/Type/Reason Admit Date/Time Feb 03, 2017 at 16:39 Initial Consult Date 02/04/17 Type of Consultation: Gastroenterology Exam/Review of Systems Vital Signs Vitals Vital Signs Date Time Temp Pulse Resp B/P Pulse Ox O2 Delivery O2 Flow Rate FiO2 02/06/17 08:44 97.6 75 16 129/65 97 02/06/17 04:09 Room Air 02/03/17 14:43 2 Intake and Output 02/05/17 02/05/17 02/06/17 15:00 23:00 07:00 Intake Total 450 ml 1461.2 ml Balance 450 ml 1461.2 ml Results Result Diagram: 02/06/17 0749 02/06/17 0745 Results 24 hrs Laboratory Tests Test 02/06/17 07:45 02/06/17 07:49 Alanine Aminotransferase (ALT/SGPT) 26 Albumin 2.9 L Albumin/Globulin Ratio 1.11 Alkaline Phosphatase 50 Anion Gap 12 Aspartate Amino Transf (AST/SGOT) 17 Blood Urea Nitrogen 11 Calcium Level 7.9 L Carbon Dioxide Level 31 Chloride Level 104 Creatinine 0.78 Direct Bilirubin 0.00 Globulin 2.60 Glucose Level 87 Indirect Bilirubin 0.0 Potassium Level 4.2 Sodium Level 143 Total Bilirubin 0.0 L Total Protein 5.5 L Basophils # 0.0 Basophils % 0.2 Eosinophils # 0.1 Eosinophils % 2.4 Hematocrit 28.7 L Hemoglobin 9.6 L Lymphocytes # 1.7 Lymphocytes % 36.5 Mean Corpuscular Hemoglobin 31.4 Mean Corpuscular Hemoglobin Concent 33.4 Mean Corpuscular Volume 93.8 Mean Platelet Volume 8.8 Monocytes # 0.3 Monocytes % 6.3 Neutrophils # 2.5 Neutrophils % 54.4 Nucleated Red Blood Cells # 0.0 Nucleated Red Blood Cells % 0.0 Platelet Count 223 Red Blood Count 3.06 L Red Cell Distribution Width 12.5 White Blood Count 4.6 L Medications Medications Current Medications Multivitamins/ Thiamine HCl/ Folic Acid/Sodium Chloride (Mvi-12 Adult/ Vitamin B1/Folic Acid/NS) 1,011.2 ml @ 125 mls/ hr DAILY@09 IVPB Last administered on 02/06/17 09:26; Admin Dose 125 MLS/HR; Start 02/04/17 at 09:00 Pantoprazole (Protonix Iv) 40 mg BID@06,18 IV Last administered on 02/06/17 06 :39; Admin Dose 40 MG; Start 02/04/17 at 06:00 Acetaminophen/ Hydrocodone Bitart ([place] (5/325)) 1 tab Q6H PRN PO pain; Start 02/03/17 at 20:30 Docusate Sodium (Colace) 100 mg BID PO Last administered on 02/06/17 09:26; Admin Dose 100 MG; Start 02/03/17 at 21:00 Ondansetron HCl (Zofran Inj) 4 mg Q6H PRN IV NAUSEA AND/OR VOMITING; Start 11/10 at 20:30 FRANCY SHEA Feb 06, 2017 11:09
[2017-02-06 12:51] LABS: ADD UMIC NO; URINE BILIRUBIN (Dip) NEGATIVE (NEGATIVE); URINE BLOOD (Dip) NEGATIVE (NEGATIVE); URINE COLOR LT. YELLOW (YELLOW); URINE GLUCOSE (Dip) NEGATIVE (NEGATIVE); URINE KETONES (Dip) NEGATIVE (NEGATIVE); URINE LEUKOCYTE ESTERASE (Dip) NEGATIVE (NEGATIVE); URINE NITRITE (Dip) NEGATIVE (NEGATIVE); URINE TOTAL PROTEIN (Dip) NEGATIVE (NEGATIVE); URINE UROBILINOGEN (Dip) 0.2 E.U./dL (0.1-1.0)
[2017-02-06 13:02] LABS: BARBITURATES Negative (NEGATIVE)
[2017-02-06 13:09] LABS: BENZODIAZEPINES Negative (NEGATIVE); CANNABINOIDS Negative (NEGATIVE); COCAINE Negative (NEGATIVE); OPIATES Negative (NEGATIVE)
[2017-02-06] MEDS ORDERED: PANT40TA3 PO (13:28)
[2017-02-06] MEDS ORDERED: FER325 PO (13:29)
--- NOTE | 2017-02-06 13:41 | DS ---
Date/Time of Note Date/Time of Note DATE: 02/06/17 TIME: 13:31 Discharge Summary Admission/Discharge Info Admit Date/Time Feb 03, 2017 at 16:39 Discharge Date/Time Final Diagnosis 1. GI bleed, esophagitis/gastritis, on PPI, follow up with Dr. Rodarte in one week 2. Anemia, due to blood loss, iron supplement 3. Frequent alcohol / marijuana use, advise to quit Patient Condition: Stable Procedures G.I. LAB PROCEDURE DATE OF PROCEDURE: PROCEDURE: Esophagogastroduodenoscopy with biopsies. SURGEON: Ike Rodarte MD. BRIEF HISTORY AND INDICATIONS: The patient is being evaluated for anemia and evidence of gastrointestinal bleeding. PREMEDICATION: Monitored anesthesia care by anesthesiologist. INSTRUMENT USED: Olympus panendoscope. TECHNIQUE: After informed consent, with the patient/relatives understanding the procedure, its indications, potential risks and complications, including but not limited to: allergic reaction, bleeding, perforation or infection, and after all pertinent questions were answered to the patients satisfaction, the patient/relatives signed witnessed informed consent. Following this, premedication was administered slowly IV push under careful cardiovascular and respiratory monitoring with pulse oximetry, automatic blood pressure and media monitor. Once the sedative effect was achieved the patient was place in the left lateral decubitus, the panendoscope was introduced and advanced under visual control. Careful examination of the upper gastrointestinal tract, both on insertion as well as withdrawal of the instrument disclosed the following findings: ESOPHAGUS: The distal esophagus shows severe erythema and edema of the mucosa with multiple ulcerations. No evidence of active bleeding or stigmata to suggest high likelihood of rebleeding. STOMACH: Upon entrance to the stomach, air was insufflated, the gastric meade distended normally. There is erythema and edema of the mucosa of a moderate degree. Biopsies were obtained to rule out H. pylori infection. PYLORUS: The pylorus appears patent and within normal limits, with no evidence of gastric outlet obstruction. DUODENUM: The duodenal mucosa was carefully examined in the duodenal bulb as well as the second portion of the duodenum and appears unremarkable with no evidence of duodenitis, ulcer or neoplasm. The instrument was then withdrawn, the patient tolerated the procedure well and was transferred out of the endoscopy suite awake, and in good condition to continue recovery under observation IMPRESSION: 1. Erosive/ulcerative esophagitis. 2. Gastritis, rule out Helicobacter pylori infection, biopsies obtained. PLAN: The patient will be treated with PPI double dose. Further recommendation will depend on the patient's clinical course as well as review of biopsies. Dictated By: IKE RODARTE MS/NTS Conf#: [id number] DID#: [id number] Hx of Present Illness 31 yo M with no significant PMH who presents to ER with a hx of vomiting a mixture of dark red and bright red blood products. Vomiting was witnessed in ER and was said to be "a lot ". Patient does drink alcohol regularly but does not think he has an alcohol problem. He has had no bleeding per rectum or black stools. No hx of similar in the past. he does not mild epigastric tenderness. Hospital Course Physical exam with epigastric tenderness. CT scan revealed the appendix demonstrates borderline diameter with diffuse gas throughout the lumen and borderline thickening of the appendiceal wall and no evidence of periappendiceal induration or fluid. Clinically there is no fever or chills. No RLL tenderness. Appendicitis is unlikely. This is discussed with the patient and he is instructed to return to hospital if abdominal pain gets worse, fever, or chills, etc. For upper GI bleeding, patient had EGD on 02/05/2017 that revealed ulcerative esophagitis, gastritis. Patient will be on protonix bis and follow up with GI for biopsy result. H/H are 9.6/28.7. He will be on iron supplement. Home Meds Active Scripts Ferrous Sulfate* (Ferrous Sulfate*) 325 Mg Tabec, 325 MG PO BID for 30 Days, TAB Prov:LUKE FOFANA MD 02/06/17 Pantoprazole* (Protonix*) 40 Mg Tablet.dr, 40 MG PO BID, #60 TAB Prov:LUKE FOFANA MD 02/06/17 Follow-up Plan PCP one week Dr. Rodarte in one week Pending Labs Laboratory Tests Test 02/06/17 07:45 02/06/17 07:49 02/06/17 11:15 Alanine Aminotransferase (ALT/SGPT) 26IU/L (13-69) Albumin 2.9g/dl (3.3-4.9) Albumin/Globulin Ratio 1.11 Alkaline Phosphatase 50IU/L (42-121) Anion Gap 12 (8-16) Aspartate Amino Transf (AST/SGOT) 17IU/L (15-46) Blood Urea Nitrogen 11mg/dl (7-20) Calcium Level 7.9mg/dl (8.4-10.2) Carbon Dioxide Level 31mmol/L (21-31) Chloride Level 104mmol/L (97-110) Creatinine 0.78mg/dl (0.61-1.24) Direct Bilirubin 0.00mg/dl (0.00-0.20) Globulin 2.60g/dl (1.3-3.2) Glucose Level 87mg/dl (70-220) Indirect Bilirubin 0.0mg/dl (0-1.1) Potassium Level 4.2mmol/L (3.5-5.1) Sodium Level 143mmol/L (135-144) Total Bilirubin 0.0mg/dl (0.2-1.3) Total Protein 5.5g/dl (6.1-8.1) Basophils # 0.010^3/ul (0.0-0.1) Basophils % 0.2% (0.0-2.0) Eosinophils # 0.110^3/ul (0.0-0.5) Eosinophils % 2.4% (0.0-7.0) Hematocrit 28.7% (42.0-52.0) Hemoglobin 9.6g/dl (14.0-18.0) Lymphocytes # 1.710^3/ul (0.8-2.9) Lymphocytes % 36.5% (15.0-51.0) Mean Corpuscular Hemoglobin 31.4pg (29.0-33.0) Mean Corpuscular Hemoglobin Concent 33.4g/dl (32.0-37.0) Mean Corpuscular Volume 93.8fl (82.0-101.0) Mean Platelet Volume 8.8fl (7.4-10.4) Monocytes # 0.310^3/ul (0.3-0.9) Monocytes % 6.3% (0.0-11.0) Neutrophils # 2.510^3/ul (1.6-7.5) Neutrophils % 54.4% (39.0-77.0) Nucleated Red Blood Cells # 0.010^3/ul (0.0-0.0) Nucleated Red Blood Cells % 0.0/100WBC (0.0-0.0) Platelet Count 00362^3/UL (140-415) Red Blood Count 3.0610^6/ul (4.70-6.10) Red Cell Distribution Width 12.5% (11.5-14.5) White Blood Count 4.610^3/ul (4.8-10.8) Urine Amphetamines Screen Negative (NEGATIVE) Urine Barbiturates Negative (NEGATIVE) Urine Benzodiazepines Screen Negative (NEGATIVE) Urine Bilirubin NEGATIVE (NEGATIVE) Urine Cannabinoids Negative (NEGATIVE) Urine Clarity CLEAR (CLEAR) Urine Cocaine Screen Negative (NEGATIVE) Urine Color LT. YELLOW (YELLOW) Urine Glucose NEGATIVE% (NEGATIVE) Urine Hemoglobin NEGATIVE (NEGATIVE) Urine Ketones NEGATIVE (NEGATIVE) Urine Leukocyte Esterase NEGATIVE (NEGATIVE) Urine Nitrite NEGATIVE (NEGATIVE) Urine Opiates Screen Negative (NEGATIVE) Urine Specific [place] 1.010 (1.003-1.030) Urine Total Protein NEGATIVE (NEGATIVE) Urine Urobilinogen 0.2 E.U./dL (0.1-1.0) Urine pH 6.0 (5.0-9.0) LUKE FOFANA MD Feb 06, 2017 13:41
== END 2017-02-06 15:00 | disposition home or self-care (01) | DRG 378 ==
LOC: E/R 13:49 → MS4 16:39
PROVIDERS: ADMIT Family Medicine; ATTEND Family Medicine
PROC: 0DB68ZX Excision of Stomach, Via Natural or Artificial Opening Endoscopic, Diagnostic (ICD-10-PCS; principal; 2017-02-03)
DX: K92.2 Gastrointestinal hemorrhage, unspecified (principal); K22.10 Ulcer of esophagus without bleeding; E66.01 Morbid (severe) obesity due to excess calories; K20.9 Esophagitis, unspecified; D50.0 Iron deficiency anemia secondary to blood loss (chronic); F12.10 Cannabis abuse, uncomplicated; K29.70 Gastritis, unspecified, without bleeding; Z72.89 Other problems related to lifestyle; K92.0 Hematemesis; Z68.33 Body mass index [BMI] 33.0-33.9, adult
CPT/HCPCS: 36415; 74176; 80048; 80053; 80076; 80307; 81003; 83036; 83690; 83735; 84484; 85014; 85018; 85025; 85610; 85730; 86850; 86900; 86901; 88305; 88312; 93005; 96374; 96375; C9113; J2405; J3411; J7030

== ENCOUNTER 2017-02-15 09:31 | Emergency (ER) | payer MEDICAID ==
[~2017-02-15] VITALS: Wt 120.0 kg
[~2017-02-15 09:31] MED LIST: FER325 PO; PANT40TA3 PO
[2017-02-15] MEDS ORDERED: HYDROCODONE/APAP (5/325) TAB PO ONE (11:00)
--- NOTE | 2017-02-15 11:20 | RADRPT ---
PROCEDURE: Chest Radiograph. CLINICAL INDICATION: Chest pain after fall TECHNIQUE: Single frontal chest radiograph. COMPARISON: Left rib series 02/15/2017 FINDINGS: Heart size is poorly evaluated. The patient is rotated. The cardiomediastinal silhouette is grossly within normal limits. The lungs are clear. No infiltrate or effusion is seen. There is no pneumo thorax. There is a subtle contour abnormality of the left posterolateral seventh rib which may repr esent a nondisplaced fracture. There is moderate dextroscoliosis of the lumbar spine. The bones ar e otherwise intact. IMPRESSION: 1. No evidence of acute cardiopulmonary disease. 2. Questionable nondisplaced left posterolateral seventh rib fracture. This may also represent a c hronic fracture. RPTAT: KK .Rodrick Watson MD, Date Time Electronically viewed and signed by .Rodrick Watson MD, MD on 02/15/2017 11:20 .B/
--- NOTE | 2017-02-15 11:22 | RADRPT ---
PROCEDURE: XR left rib series. CLINICAL INDICATION: Rib pain TECHNIQUE: 2 views of the rib cage are available for review COMPARISON: No comparison study available FINDINGS: The ribs are normal in mineralization and architecture. There is an old healed lateral left seventh rib fracture No acute fracture is identified. No osseous lesion is identified. The visualized lung montero are unremarkable. The pleural spaces are unremarkable. No effusion or pneumothorax is iden tified. IMPRESSION: Old healed lateral left seventh rib fracture No acute fracture identified RPTAT: HGDB .Bassem Perry MD, MD Date Time Electronically viewed and signed by .Bassem Perry MD, on 02/15/2017 11:21 .B/
--- NOTE | 2017-02-15 11:37 | RADRPT ---
PROCEDURE: US Abdomen. CLINICAL INDICATION: abdominal pain TECHNIQUE: Multiple real-time images were acquired of the patient's right upper quadrant abdomen a nd retroperitoneum utilizing a high resolution transducer. COMPARISON: 02/05/2017 FINDINGS: There is no evidence of free fluid. Incidentally noted are calcified stones within the gallbladder. RPTAT: AA IMPRESSION: No evidence of free fluid. Calcified stones within the gallbladder. .Maurice Felix MD, MD Date Time Electronically viewed and signed by .Maurice Felix MD, MD on 02/15/2017 11:37 .S/
--- NOTE | 2017-02-15 11:54 | ERD ---
ER Documentation Chief Complaint Date/Time DATE: 02/15/17 TIME: 11:49 Chief Complaint LEFT RIB PAIN AFTER INJURY AT WORK TODAY HPI This is a 31-year-old male who presents to the emergency department today complaining of left-sided rib pain after falling on some bars while at work. 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 Denies any previous history of trauma. He has not taken any medication for the pain. States he "heard a crack". States he has pain with taking a deep breath and coughing ROS All systems reviewed and are negative except as per history of present illness. Medications Home Meds Active Scripts Acetaminophen* (Tylophen*) 500 Mg Capsule, 1 CAP PO Q6H Y for PAIN AND OR ELEVATED TEMP, #30 CAP Prov:BROOKS VILLA PA-C 02/15/17 Hydrocodone/Acetaminophen (Mccarr 5-325 Tablet) 1 Each Tablet, 1 TAB PO Q6H Y for PAIN, #15 TAB Prov:BROOKS VILLA PA-C 02/15/17 Ferrous Sulfate* (Ferrous Sulfate*) 325 Mg Tabec, 325 MG PO BID for 30 Days, TAB Prov:LUKE FOFANA MD 02/06/17 Pantoprazole* (Protonix*) 40 Mg Tablet.dr, 40 MG PO BID, #60 TAB Prov:LUKE FOFANA MD 02/06/17 Allergies Allergies: Coded Allergies: No Known Allergies (Unverified Allergy, Unknown, 02/15/17) PMhx/Soc Medical and Surgical Hx: pt denies Medical Hx, pt denies Surgical Hx History of Surgery: No Hx Neurological Disorder: No Hx Respiratory Disorders: No Hx Cardiac Disorders: No Hx Psychiatric Problems: No Hx Miscellaneous Medical Probl: No Hx Alcohol Use: Yes (socially) Hx Substance Use: No Hx Tobacco Use: No Smoking Status: Never smoker Physical Exam Vitals Vital Signs Date Time Temp Pulse Resp B/P Pulse Ox O2 Delivery O2 Flow Rate FiO2 02/15/17 09:34 98.0 78 18 178/71 99 Physical Exam Const: No acute distress Head: Atraumatic Eyes: Normal Conjunctiva ENT: Normal External Ears, Nose and Mouth. Neck: Full range of motion..~ No meningismus. Resp: Clear to auscultation bilaterally. No absent breath sounds. No wheezing. Tenderness palpation left side of ribs. Cardio: Regular rate and rhythm, no murmurs Abd: Soft, left upper quadrant tenderness non distended. Normal bowel sounds. No right upper quadrant pain. No lower abdominal pain. Skin: No petechiae or rashes Back: No midline or flank tenderness Neur: Awake and alert Psych: Normal Mood and Affect Results 24 hrs Current Medications Medications (Trade) Dose Ordered Sig/Unique Route PRN Reason Start Time Stop Time Status Last Admin Dose Admin Acetaminophen/ Hydrocodone Bitart (Mccarr (5/325)) 1 tab ONCE ONCE PO 02/15/17 11:00 02/15/17 11:01 DC 02/15/17 10:55 DIAGNOSTIC IMAGING REPORT Patient: LYNNETTE PUGA : 1985 Age: 31 Sex: M MR #: [id number] DOS: 02/15/17 0000 Ordering MD: BROOKS VILLA PA-C Location: [facility] Room/Bed: PROCEDURE: US Abdomen. CLINICAL INDICATION: abdominal pain TECHNIQUE: Multiple real-time images were acquired of the patient's right upper quadrant abdomen and retroperitoneum utilizing a high resolution transducer. COMPARISON: 02/05/2017 FINDINGS: There is no evidence of free fluid. Incidentally noted are calcified stones within the gallbladder. RPTAT: AA IMPRESSION: No evidence of free fluid. Calcified stones within the gallbladder. .Maurice Felix MD, MD Date Time Electronically viewed and signed by .Maurice Felix MD, MD on 02/15/2017 11: 37 .S/ CC: BROOKS VILLA PA-C DIAGNOSTIC IMAGING REPORT Patient: LYNNETTE PUGA : 1985 Age: 31 Sex: M MR #: [id number] DOS: 02/15/17 0000 Ordering MD: BROOKS VILLA PA-C Location: [facility] Room/Bed: PROCEDURE: Chest Radiograph. CLINICAL INDICATION: Chest pain after fall TECHNIQUE: Single frontal chest radiograph. COMPARISON: Left rib series 02/15/2017 FINDINGS: Heart size is poorly evaluated. The patient is rotated. The cardiomediastinal silhouette is grossly within normal limits. The lungs are clear. No infiltrate or effusion is seen. There is no pneumothorax. There is a subtle contour abnormality of the left posterolateral seventh rib which may represent a nondisplaced fracture. There is moderate dextroscoliosis of the lumbar spine. The bones are otherwise intact. IMPRESSION: 1. No evidence of acute cardiopulmonary disease. 2. Questionable nondisplaced left posterolateral seventh rib fracture. This may also represent a chronic fracture. RPTAT: KK .Rodrick Watson MD, MD Date Time Electronically viewed and signed by .Rodrick Watson MD, MD on 2016 11:20 .B/ CC: BROOKS VILLA PA-C DIAGNOSTIC IMAGING REPORT Patient: LYNNETTE PUGA : 1985 Age: 31 Sex: M MR #: [id number] DOS: 02/15/17 0000 Ordering MD: BROOKS VILLA PA-C Location: E Room/Bed: PROCEDURE: XR left rib series. CLINICAL INDICATION: Rib pain TECHNIQUE: 2 views of the rib cage are available for review COMPARISON: No comparison study available FINDINGS: The ribs are normal in mineralization and architecture. There is an old healed lateral left seventh rib fracture No acute fracture is identified. No osseous lesion is identified. The visualized lung montero are unremarkable. The pleural spaces are unremarkable. No effusion or pneumothorax is identified. IMPRESSION: Old healed lateral left seventh rib fracture No acute fracture identified RPTAT: HGDB .Bassem Perry MD, MD Date Time Electronically viewed and signed by .Bassem Perry MD, MD on 02/15/2017 11:21 .B/ CC: BROOKS VILLA PA-C Procedures/MDM This a 31-year-old male who presents to the emergency department today complaining of left-sided rib pain and pain with taking deep breaths after falling approximately 4 feet and landing on some metal bars while at work today. Given the patient's complaint I did obtain a chest x-ray as well as dedicated rib films. Patient also had some left upper quadrant tenderness and given that he did fall I did obtain FAST exam and ultrasound of the abdomen. Per the radiology report images of the chest show lungs are clear. There is no infiltrate or effusion. There is no pneumothorax. There is subtle contour abnormality of the left posterior lateral seventh rib which may represent a nondisplaced fracture. There is moderate dextroscoliosis of the lumbar spine. The questionable nondisplaced fracture may also represent a chronic fracture. Dedicated rib series showed an old healed lateral seventh rib fracture with no acute fracture identified. Ultrasound of the abdomen shows no evidence of free fluid. Incidentally noted are calcified stones within the gallbladder Patient symptoms at this time consistent with old rib fracture and contusion. Patient was given Mccarr here in the emergency department. I will give him a prescription for Mccarr and Tylenol for home. Patient was admitted to the hospital approximately 10 days ago with a GI bleed. I will not give the patient a prescription for Naprosyn or Motrin. He was instructed to apply ice. He was instructed to take regular breaths as tolerated. At this time the patient is stable for discharge and outpatient management. Patient should follow up with their PCP in the next 1-2 days. They may return to the emergency department sooner for any persistent or worsening of symptoms. Patient understood and agreed with the plan. Departure Diagnosis: Primary Impression: Rib injury Condition: Fair BROOKS VILLA PA-C Feb 15, 2017 11:54
[2017-02-15] MEDS ORDERED: HYDR-906 PO (12:03)
[2017-02-15] MEDS ORDERED: ACET500C5 PO (12:04)
== END 2017-02-15 12:25 | disposition home or self-care (01) ==
LOC: FTE 09:31
DX: S29.9XXA Unspecified injury of thorax, initial encounter (principal); W18.39XA Other fall on same level, initial encounter; Y92.89 Other specified places as the place of occurrence of the external cause
CPT/HCPCS: 71010; 71100; 76705; Z7502; Z7610

== ENCOUNTER 2017-04-13 19:39 | Emergency (ER) | payer MEDICAID ==
[~2017-04-13] VITALS: Ht 195.6 cm; Wt 136.5 kg
[~2017-04-13 19:39] MED LIST changes: +ACET500C5 PO; +HYDR-906 PO
[2017-04-13 19:45] VITALS: Ht 195.6 cm; Wt 136.5 kg
--- NOTE | 2017-04-13 20:45 | ERA ---
ER Documentation Chief Complaint Date/Time DATE: 04/13/17 TIME: 20:43 Chief Complaint Left Flank pain x4 days and Dysuria HPI This is a 31-year-old male who presents complaining of dysuria. Patient has had trouble urinating for the past 3 days with feelings of incomplete voiding. Patient has not had regular bowel movements as well. Patient denies constipation or diarrhea. Patient denies hematuria, fever, discharge or pruritus in the groin region. ROS All systems reviewed and are negative except as per history of present illness. Medications Home Meds Active Scripts Phenazopyridine Hcl* (Pyridium*) 100 Mg Tab, 100 MG PO TID Y for URINARY PAIN, # 8 TAB Prov:AWAIS BAXTER PA-C 04/13/17 Ciprofloxacin Hcl* (Ciprofloxacin Hcl*) 500 Mg Tablet, 500 MG PO BID for 10 Days , TAB Prov:AWAIS BAXTER PA-C 04/13/17 Acetaminophen* (Tylophen*) 500 Mg Capsule, 1 CAP PO Q6H Y for PAIN AND OR ELEVATED TEMP, #30 CAP Prov:BROOKS VILLA PA-C 02/15/17 Hydrocodone/Acetaminophen ([place] 5-325 Tablet) 1 Each Tablet, 1 TAB PO Q6H Y for PAIN, #15 TAB Prov:BROOKS VILLA PA-C 02/15/17 Ferrous Sulfate* (Ferrous Sulfate*) 325 Mg Tabec, 325 MG PO BID for 30 Days, TAB Prov:LUKE FOFANA MD 02/06/17 Pantoprazole* (Protonix*) 40 Mg Tablet.dr, 40 MG PO BID, #60 TAB Prov:LUKE FOFANA MD 02/06/17 Discontinued Scripts Cephalexin* (Keflex*) 500 Mg Capsule, 500 MG PO QID for 5 Days, CAP Prov:AWAIS BAXTER PA-C 04/13/17 Allergies Allergies: Coded Allergies: No Known Allergies (Unverified Allergy, Unknown, 02/15/17) PMhx/Soc History of Surgery: No Hx Neurological Disorder: No Hx Respiratory Disorders: No Hx Cardiac Disorders: No Hx Psychiatric Problems: No Hx Miscellaneous Medical Probl: No Hx Alcohol Use: Yes (socially) Hx Substance Use: No Hx Tobacco Use: No Physical Exam Vitals Vital Signs Date Time Temp Pulse Resp B/P Pulse Ox O2 Delivery O2 Flow Rate FiO2 5/20/17 19:45 98.4 90 20 141/98 95 Physical Exam Const: Morbidly obese 31-year-old male Head: Atraumatic Eyes: Normal Conjunctiva ENT: Normal External Ears, Nose and Mouth. Neck: Full range of motion..~ No meningismus. Resp: Mild crackles in the lower lobes bilaterally. Cardio: Regular rate and rhythm, no murmurs Abd: Mild left lower quadrant tenderness. Soft, non distended. Normal bowel sounds Skin: No petechiae or rashes Back: No midline or flank tenderness Ext: No cyanosis, or edema Neur: Awake and alert Psych: Normal Mood and Affect Result Diagram: 04/13/17215704/13/172157 Results 24 hrs Laboratory Tests Test 04/13/17 21:00 04/13/17 21:58 Urine Color YELLOW Urine Clarity CLEAR Urine pH 5.5 Urine Specific [place] 1.025 Urine Ketones NEGATIVE Urine Nitrite NEGATIVE Urine Bilirubin NEGATIVE Urine Urobilinogen 0.2 E.U./dL Urine Leukocyte Esterase NEGATIVE Urine Microscopic RBC 10-25/HPF Urine Microscopic WBC 2-5/HPF Urine Epithelial Cells RARE Urine Mucus MODERATE Urine Hemoglobin 1+ Urine Glucose NEGATIVE% Urine Total Protein NEGATIVE White Blood Count 5.310^3/ul Red Blood Count 4.3810^6/ul Hemoglobin 13.6g/dl Hematocrit 39.5% Mean Corpuscular Volume 90.2fl Mean Corpuscular Hemoglobin 31.1pg Mean Corpuscular Hemoglobin Concent 34.4g/dl Red Cell Distribution Width 11.2% Platelet Count 76273^3/UL Mean Platelet Volume 9.2fl Neutrophils % 47.9% Lymphocytes % 37.6% Monocytes % 7.3% Eosinophils % 6.6% Basophils % 0.4% Nucleated Red Blood Cells % 0.0/100WBC Neutrophils # 2.610^3/ul Lymphocytes # 2.010^3/ul Monocytes # 0.410^3/ul Eosinophils # 0.410^3/ul Basophils # 0.010^3/ul Nucleated Red Blood Cells # 0.010^3/ul Sodium Level 137mmol/L Potassium Level 3.7mmol/L Chloride Level 101mmol/L Carbon Dioxide Level 27mmol/L Anion Gap 13 Blood Urea Nitrogen 18mg/dl Creatinine 0.87mg/dl Glucose Level 119mg/dl Calcium Level 8.8mg/dl Total Bilirubin 0.0mg/dl Direct Bilirubin 0.00mg/dl Indirect Bilirubin 0.0mg/dl Aspartate Amino Transf (AST/SGOT) 26IU/L Alanine Aminotransferase (ALT/SGPT) 39IU/L Alkaline Phosphatase 79IU/L Total Protein 7.8g/dl Albumin 4.1g/dl Globulin 3.70g/dl Albumin/Globulin Ratio 1.10 Prostate Specific Antigen 1.7ng/ml Procedures/MDM 31-year-old male who is being worked up for difficulty urinating. Patient's urinalysis was consistent with urinary tract infection. Chest x-ray was obtained due to crackles in the lung. Chest x-ray was unremarkable. PSA was within normal limits. Patient will be discharged with 10 days of Cipro for male urinary tract infection and Pyridium for any dysuria. At this time a very low suspicion for cauda equina syndrome, pyelonephritis, testicular torsion, anatomical obstruction or prostate enlargement. Departure Diagnosis: Primary Impression: Urinary tract infection Qualified Code: N34.2 - Infective urethritis Condition: Stable Additional Instructions: Follow up with your PCP within the next 1-3 days for a more thorough evaluation and a possible referral to a specialist. Return the the emergency department immediately if symptoms worsen or change. If you have any questions regarding medications, ask your pharmacist or us before you leave. If any adverse reactions occur while taking your medications, discontinue the treatment and return to the emergency department immediately. Take your medications as directed, and complete the entire course of treatment. AWAIS BAXTER PA-C April 13, 2017 20:45
[2017-04-13 21:22] LABS: ADD UMIC YES; URINE BILIRUBIN (Dip) NEGATIVE (NEGATIVE); URINE BLOOD (Dip) 1+ (NEGATIVE); URINE COLOR YELLOW (YELLOW); URINE GLUCOSE (Dip) NEGATIVE (NEGATIVE); URINE KETONES (Dip) NEGATIVE (NEGATIVE); URINE LEUKOCYTE ESTERASE (Dip) NEGATIVE (NEGATIVE); URINE NITRITE (Dip) NEGATIVE (NEGATIVE); URINE TOTAL PROTEIN (Dip) NEGATIVE (NEGATIVE); URINE UROBILINOGEN (Dip) 0.2 E.U./dL (0.1-1.0)
[2017-04-13 21:31] LABS: MUCUS,URINE MODERATE
[2017-04-13 22:04] LABS: ADD SCAN DIFF NO
[2017-04-13 22:06] LABS: BASOPHILS % 0.4 % (0.0-2.0); EOSINOPHILS # 0.4 10^3/ul (0.0-0.5); EOSINOPHILS % 6.6 % (0.0-7.0); HEMATOCRIT 39.5 % (42.0-52.0); HEMOGLOBIN 13.6 g/dl (14.0-18.0); LYMPHOCYTES % 37.6 % (15.0-51.0); MEAN CORPUSCULAR HEMOGLOBIN 31.1 pg (29.0-33.0); MEAN CORPUSCULAR HGB CONC 34.4 g/dl (32.0-37.0); MEAN CORPUSCULAR VOLUME 90.2 fl (82.0-101.0); MEAN PLATELET VOLUME 9.2 fl (7.4-10.4); MONOCYTE # 0.4 10^3/ul (0.3-0.9); MONOCYTES % 7.3 % (0.0-11.0); NEUTROPHIL # 2.6 10^3/ul (1.6-7.5); NEUTROPHILS % 47.9 % (39.0-77.0); PLATELET COUNT 291 10^3/UL (140-415); RED BLOOD COUNT 4.38 10^6/ul (4.70-6.10); RED CELL DISTRIBUTION WIDTH 11.2 % (11.5-14.5); WHITE BLOOD COUNT 5.3 10^3/ul (4.8-10.8)
[2017-04-13 22:24] LABS: ALBUMIN 4.1 g/dl (3.3-4.9); ALBUMIN/GLOBULIN RATIO 1.1; CALCIUM 8.8 mg/dl (8.4-10.2); CREATININE 0.87 mg/dl (0.61-1.24); POTASSIUM 3.7 mmol/L (3.5-5.1); TOTAL PROTEIN 7.8 g/dl (6.1-8.1)
[2017-04-13 22:55] LABS: PROSTATE SPECIFIC ANTIGEN 1.7 ng/ml (0.0-4.0)
--- NOTE | 2017-04-13 23:06 | RADRPT ---
PROCEDURE: XR Chest. CLINICAL INDICATION: Irregular bowel movements. TECHNIQUE: PA and Lateral views of the chest were obtained. COMPARISON: 02/15/2017. FINDINGS: The cardiomediastinal silhouette is within normal limits. Mild right lung base atelectasis. The hattie gs otherwise clear. No signs of pleural fluid or pneumothorax are seen. Levoscoliosis in the upper thoracic spine and dextroscoliosis in the mid to lower thoracic spine. osseous structures and soft t issues are unremarkable. IMPRESSION: Mild right lung base atelectasis. RPTAT: [facility] Physician Rex Date Time Electronically viewed and signed by Physician Rex on 04/13/2017 23:06 RS/
[2017-04-13] MEDS ORDERED: CEPH-443 PO (23:46)
[2017-04-13] MEDS ORDERED: PHEN-537 PO (23:48)
[2017-04-13] MEDS ORDERED: CIPR500T4 PO (23:48)
[2017-04-14 00:15] VITALS: PULSE 84; RESP 20; TEMP 98.4
== END 2017-04-14 | disposition home or self-care (01) ==
LOC: FTE 19:39
DX: N34.2 Other urethritis (principal)
CPT/HCPCS: 71020; 80053; 81001; 84153; 84154; 85025; Z7502; 81003

== ENCOUNTER 2017-08-02 20:48 | Emergency (ER) | payer MEDICAID, OTHER ==
[~2017-08-02] VITALS: Ht 195.6 cm; Wt 133.5 kg
[~2017-08-02 20:48] MED LIST changes: +CIPR500T4 PO; +PHEN-537 PO
[2017-08-02 21:05] VITALS: Ht 195.6 cm; Wt 133.5 kg
[2017-08-02] MEDS ORDERED: ONDANSETRON 4 MG INJ IV STA (22:29)
[2017-08-02] MEDS ORDERED: morphine 4 MG/ML VIAL IV STA (22:29)
[2017-08-02 23:08] LABS: BASOPHILS % 0.3 % (0.0-2.0); EOSINOPHILS # 0.1 10^3/ul (0.0-0.5); HEMATOCRIT 42.5 % (42.0-52.0); HEMOGLOBIN 14.6 g/dl (14.0-18.0); LYMPHOCYTES # 2.1 10^3/ul (0.8-2.9); LYMPHOCYTES % 31.3 % (15.0-51.0); MEAN CORPUSCULAR HEMOGLOBIN 31.4 pg (29.0-33.0); MEAN CORPUSCULAR HGB CONC 34.4 g/dl (32.0-37.0); MEAN CORPUSCULAR VOLUME 91.4 fl (82.0-101.0); MEAN PLATELET VOLUME 8.8 fl (7.4-10.4); MONOCYTE # 0.5 10^3/ul (0.3-0.9); MONOCYTES % 7.3 % (0.0-11.0); NEUTROPHILS % 58.8 % (39.0-77.0); PLATELET COUNT 293 10^3/UL (140-415); RED BLOOD COUNT 4.65 10^6/ul (4.70-6.10); RED CELL DISTRIBUTION WIDTH 13.1 % (11.5-14.5); WHITE BLOOD COUNT 6.6 10^3/ul (4.8-10.8)
[2017-08-02 23:26] LABS: ALBUMIN 3.5 g/dl (3.3-4.9); ALBUMIN/GLOBULIN RATIO 1.2; BILIRUBIN,INDIRECT 0.1 mg/dl (0-1.1); BILIRUBIN,TOTAL 0.1 mg/dl (0.2-1.3); CALCIUM 8.3 mg/dl (8.4-10.2); CREATININE 0.77 mg/dl (0.61-1.24); POTASSIUM 3.8 mmol/L (3.5-5.1); TOTAL PROTEIN 6.4 g/dl (6.1-8.1)
[2017-08-03] MEDS ORDERED: LIDOCAINE/MYLANTA 40 ML BTL PO ONE (00:30)
[2017-08-03] MEDS ORDERED: FAMOTIDINE 20 MG INJ IV ONE (00:30)
[2017-08-03 00:42] LABS: ADD UMIC NO; UR ASCORBIC ACID 20 mg/dL (NEGATIVE); UR BILIRUBIN (Dip) NEGATIVE (NEGATIVE); UR BLOOD (Dip) NEGATIVE (NEGATIVE); UR CLARITY CLEAR (CLEAR); UR COLOR YELLOW (YELLOW); UR GLUCOSE (Dip) NEGATIVE (NEGATIVE); UR KETONES (Dip) NEGATIVE (NEGATIVE); UR LEUKOCYTE ESTERASE (Dip) NEGATIVE Leu/ul (NEGATIVE); UR NITRITE (Dip) NEGATIVE (NEGATIVE); UR SPECIFIC GRAVITY (Dip) 1.031 (1.003-1.030); UR TOTAL PROTEIN (Dip) NEGATIVE (NEGATIVE); UR UROBILINOGEN (Dip) 1+ mg/dL (NEGATIVE)
[2017-08-03] MEDS ORDERED: ACET325T33 PO (00:54)
[2017-08-03] MEDS ORDERED: FAMO-96 PO (00:54)
[2017-08-03 01:11] VITALS: BP 129/84; PULSE 81; RESP 22; TEMP 97.7
--- NOTE | 2017-08-03 02:42 | ERD ---
ER Documentation Chief Complaint Date/Time DATE: 08/03/17 TIME: 02:37 Chief Complaint Mid AP and difficulty eating X4 days. nausea HPI 32-year-old male patient with past medical history of a gastric ulcer presents to the ED complaining of abdominal pain. States the pain is diffusely on the abdomen. That he had one episode of nonbilious nonbloody vomiting as well as one episode of non-mucoid non-bloody diarrhea. Reports that his also has similar symptoms of nonbilious non-mucoid vomiting. Denies any chest pain, shortness of breath, constipation. Denies any hematemesis, melena, bloody stools. Denies any dysuria, urgency, frequency, hematuria. ROS All systems reviewed and are negative except as per history of present illness. Medications Home Meds Active Scripts Acetaminophen* (Tylenol*) 325 Mg Tablet, 2 TAB PO Q8 Y for PAIN AND OR ELEVATED TEMP, #20 TAB Prov:ANITRA BOYD PA-C 08/03/17 Famotidine* (Pepcid*) 20 Mg Tablet, 20 MG PO BID, #20 TAB Prov:ANITRA BOYD PA-C 08/03/17 Phenazopyridine Hcl* (Pyridium*) 100 Mg Tab, 100 MG PO TID Y for URINARY PAIN, # 8 TAB Prov:AWAIS BAXTER PA-C 04/13/17 Ciprofloxacin Hcl* (Ciprofloxacin Hcl*) 500 Mg Tablet, 500 MG PO BID for 10 Days , TAB Prov:AWAIS BAXTER PA-C 04/13/17 Acetaminophen* (Tylophen*) 500 Mg Capsule, 1 CAP PO Q6H Y for PAIN AND OR ELEVATED TEMP, #30 CAP Prov:BROOKS VILLA PA-C 02/15/17 Hydrocodone/Acetaminophen ([place] 5-325 Tablet) 1 Each Tablet, 1 TAB PO Q6H Y for PAIN, #15 TAB Prov:BROOKS VILLA PA-C 02/15/17 Ferrous Sulfate* (Ferrous Sulfate*) 325 Mg Tabec, 325 MG PO BID for 30 Days, TAB Prov:LUKE FOFANA MD 02/06/17 Pantoprazole* (Protonix*) 40 Mg Tablet.dr, 40 MG PO BID, #60 TAB Prov:LUKE FOFANA MD 02/06/17 Allergies Allergies: Coded Allergies: No Known Allergies (Unverified Allergy, Unknown, 02/15/17) PMhx/Soc History of Surgery: No Hx Neurological Disorder: No Hx Respiratory Disorders: No Hx Cardiac Disorders: No Hx Psychiatric Problems: No Hx Miscellaneous Medical Probl: Yes (GI ULCER, ANEMIA) Hx Alcohol Use: Yes (socially) Hx Substance Use: Yes (OCC MARIJUANA USE) Hx Tobacco Use: No Smoking Status: Heavy tobacco smoker Physical Exam Vitals Vital Signs Date Time Temp Pulse Resp B/P Pulse Ox O2 Delivery O2 Flow Rate FiO2 08/03/17 01:11 97.7 81 22 129/84 98 08/02/17 21:05 97.7 96 22 134/84 98 Physical Exam Const: Pbp-egn-vygngdscm, well-nourished. In no acute distress. Head: Atraumatic, normocephalic Eyes: Normal Conjunctiva without injection. No purulent discharge. ENT: Normal external ear, nose. Moist oropharynx without tonsillar exudates. Non -erythematous pharynx. Uvula midline. No drooling. No trismus. Neck: No cervical midline tenderness. Full range of motion. No meningismus. No cervical lymphadenopathy. No JVD. Resp: Clear to auscultation bilaterally. No wheezing, rhonchi, rales, or crackles. No accessory muscle use. No retractions. Cardio: Regular rate and rhythm. No murmurs, rubs or gallops. Abd: Soft, generalized tenderness, non distended. Normal bowel sounds. No palpable masses. No rebound tenderness. No guarding. Negative McBurney's point. Negative psoas sign. Negative obturator sign. Skin: No petechiae or rashes Back: No midline tenderness. No CVA tenderness. Ext: No cyanosis, or edema. Neur: Awake and alert. Normal gait. Normal coordination. Psych: Normal Mood and Affect Results 24 hrs Laboratory Tests Test 08/02/17 23:00 08/03/17 00:30 White Blood Count 6.610^3/ul Red Blood Count 4.6510^6/ul Hemoglobin 14.6g/dl Hematocrit 42.5% Mean Corpuscular Volume 91.4fl Mean Corpuscular Hemoglobin 31.4pg Mean Corpuscular Hemoglobin Concent 34.4g/dl Red Cell Distribution Width 13.1% Platelet Count 44196^3/UL Mean Platelet Volume 8.8fl Neutrophils % 58.8% Lymphocytes % 31.3% Monocytes % 7.3% Eosinophils % 2.0% Basophils % 0.3% Nucleated Red Blood Cells % 0.0/100WBC Neutrophils # (Manual) 3.910^3/ul Lymphocytes # 2.110^3/ul Monocytes # 0.510^3/ul Eosinophils # 0.110^3/ul Basophils # 0.010^3/ul Nucleated Red Blood Cells # 0.010^3/ul Sodium Level 138mmol/L Potassium Level 3.8mmol/L Chloride Level 105mmol/L Carbon Dioxide Level 27mmol/L Anion Gap 10 Blood Urea Nitrogen 16mg/dl Creatinine 0.77mg/dl Glucose Level 112mg/dl Calcium Level 8.3mg/dl Total Bilirubin 0.1mg/dl Direct Bilirubin 0.00mg/dl Indirect Bilirubin 0.1mg/dl Aspartate Amino Transf (AST/SGOT) 19IU/L Alanine Aminotransferase (ALT/SGPT) 36IU/L Alkaline Phosphatase 60IU/L Total Protein 6.4g/dl Albumin 3.5g/dl Globulin 2.90g/dl Albumin/Globulin Ratio 1.20 Lipase 35U/L Urine Color YELLOW Urine Clarity CLEAR Urine pH 5.0 Urine Specific [place] 1.031 Urine Ketones NEGATIVEmg/dL Urine Nitrite NEGATIVEmg/dL Urine Bilirubin NEGATIVEmg/dL Urine Urobilinogen 1+mg/dL Urine Leukocyte Esterase NEGATIVELeu/ul Urine Hemoglobin NEGATIVEmg/dL Urine Glucose NEGATIVEmg/dL Urine Total Protein NEGATIVEmg/dl Current Medications Medications (Trade) Dose Ordered Sig/Unique Route PRN Reason Start Time Stop Time Status Last Admin Dose Admin Ondansetron HCl (Zofran Inj) 4 mg ONCE STAT IV 08/02/17 22:29 08/02/17 22:33 DC 08/02/17 23:03 Morphine Sulfate (morphine) 4 mg ONCE STAT IV 08/02/17 22:29 08/02/17 22:33 DC 08/02/17 23:04 Miscellaneous Medication (Gi Cocktail (2)) 40 ml ONCE ONCE PO 08/03/17 00:30 08/03/17 00:31 DC 08/03/17 01:07 Famotidine (Pepcid Iv) 20 mg ONCE ONCE IV 08/03/17 00:30 08/03/17 00:31 DC 08/03/17 01:07 Procedures/MDM 32-year-old male patient with no significant past medical history presents to the ED complaining of generalized abdominal pain. Patient is afebrile and nontoxic-appearing. Patient has normal vital signs. Patient was further worked up with CBC, CMP, lipase, UA. Patient's pain and symptoms have improved after treatment with GI cocktail, famotidine 20 mg IV, morphine 4 mg IV, 4 mg IV Zofran. A CT of the abdomen and pelvis was discussed with the patient at this time and he stated that he would like to follow up with a family service caseworker. CBC: No leukocytosis. No e/o of systemic infection. No e/o anemia. CMP: No e/o severe acidosis, alkalosis, renal failure, diabetic ketoacidosis, liver disease Lipase within normal limits. Urine: No leukocyte esterase, no nitrites, no hematuria. Patient's symptoms could be viral because his also has similar symptoms. Low suspicion for gastritis, GERD, peptic ulcer disease, cholecystitis, choledocholithiasis, cholangitis, pancreatitis, appendicitis, bowel obstruction , ileus, volvulus, nephrolithiasis, pyelonephritis, hepatitis, perforated viscus , diverticulitis, abdominal hernia, acute abdomen, mesenteric ischemia or other emergent conditions. Discharge medications: Tylenol, Famotidine Follow up with primary care physician in 1-2 days for referral to family service caseworker. Instructed patient to return to the ED sooner for any worsening symptoms. Patient's questions were answered. Patient understood and agreed with discharge plan. Patient discharged stable. Departure Diagnosis: Primary Impression: Abdominal pain Abdominal location: unspecified location Qualified Code: R10.9 - Abdominal pain, unspecified abdominal location Condition: Stable Patient Instructions: Abdominal Pain, Gastritis Vs. Ulcer Referrals: COMMUNITY CLINICS YOU HAVE RECEIVED A MEDICAL SCREENING EXAM AND THE RESULTS INDICATE THAT YOU DO NOT HAVE A CONDITION THAT REQUIRES URGENT TREATMENT IN THE EMERGENCY DEPARTMENT. FURTHER EVALUATION AND TREATMENT OF YOUR CONDITION CAN WAIT UNTIL YOU ARE SEEN IN YOUR DOCTORS OFFICE WITHIN THE NEXT 1-2 DAYS. IT IS YOUR RESPONSIBILITY TO MAKE AN APPOINTMENT FOR FOLOW-UP CARE. IF YOU HAVE A PRIMARY DOCTOR --you should call your primary doctor and schedule an appointment IF YOU DO NOT HAVE A PRIMARY DOCTOR YOU CAN CALL OUR PHYSICIAN REFERRAL HOTLINE AT IF YOU CAN NOT AFFORD TO SEE A PHYSICIAN YOU CAN CHOSE FROM THE FOLLOWING [facility] CL[facility]ICS [facility] [address] [facility] [address] [facility] [phone] [facility] [address] [facility] [address] [facility]. [facility] [address] [facility]. [facility] YOU HAVE RECEIVED A MEDICAL SCREENING EXAM AND THE RESULTS INDICATE THAT YOU DO NOT HAVE A CONDITION THAT REQUIRES URGENT TREATMENT IN THE EMERGENCY DEPARTMENT. FURTHER EVALUATION AND TREATMENT OF YOUR CONDITION CAN WAIT UNTIL YOU ARE SEEN IN YOUR DOCTORS OFFICE WITHIN THE NEXT 1-2 DAYS. IT IS YOUR RESPONSIBILITY TO MAKE AN APPOINTMENT FOR FOLOW-UP CARE. IF YOU HAVE A PRIMARY DOCTOR --you should call your primary doctor and schedule and appointment IF YOU DO NOT HAVE A PRIMARY DOCTOR YOU CAN CALL OUR PHYSICIAN REFERRAL HOTLINE AT . IF YOU CAN NOT AFFORD TO SEE A PHYSICIAN YOU CAN CHOSE FROM THE FOLLOWING [facility]: [facility] [address] [place] [address] [facility] [address] [place], [place] [id number] [place] [address] [address] [place] [address] [facility] URGENT C[facility]/SPECIALTIES Additional Instructions: Call your primary care doctor TOMORROW for an appointment during the next 2-3 days for a referral to a family service caseworker. See the doctor sooner or return here if your condition worsens before your appointment time - vomiting blood, bloody stools, abdominal pain, etc. ANITRA BOYD PA-C Aug 03, 2017 02:42 ANITRA BOYD PA-C Aug 03, 2017 02:42
== END 2017-08-03 01:17 | disposition home or self-care (01) ==
LOC: FTE 20:48
DX: R10.84 Generalized abdominal pain (principal); F17.210 Nicotine dependence, cigarettes, uncomplicated; R11.10 Vomiting, unspecified
CPT/HCPCS: 36415; 80053; 81003; 83690; 85025; 96374; 96375; J2270; J2405; Z7502; Z7610

== ENCOUNTER 2017-11-14 00:59 | Emergency (ER) | payer SELFPAY ==
[~2017-11-14] VITALS: Ht 195.6 cm; Wt 140.3 kg
[~2017-11-14 00:59] MED LIST changes: +ACET325T33 PO; +FAMO-96 PO
[2017-11-14 01:05] VITALS: Ht 195.6 cm; Wt 140.3 kg
== END 2017-11-14 02:18 | disposition left against medical advice (07) ==
LOC: E/R 00:59
DX: Z53.21 Procedure and treatment not carried out due to patient leaving prior to being seen by health care provider (principal)

== ENCOUNTER 2018-05-15 01:31 | Emergency (ER) | END 2018-05-15 01:41 | disposition left against medical advice (07) ==

== ENCOUNTER 2019-07-15 11:22 | Emergency (ER) | payer OTHER ==
[~2019-07-15] VITALS: Ht 195.6 cm; Wt 131.3 kg
[~2019-07-15 11:22] MED LIST changes: +ALBU8.5H8 INH; +DOXY100T20 PO; +HYDR-4011 PO; -HYDR-906 PO; +IBUP800T48 PO; +PRED20TA PO
[2019-07-15 11:36] VITALS: Ht 195.6 cm; Wt 131.3 kg
[2019-07-15] MEDS ORDERED: ALBUTEROL 0.083% (NEB) 2.5 MG/3 ML AMP HHN STA ×2 (12:06→14:49)
[2019-07-15] MEDS ORDERED: SOD CHLORIDE 0.9% 1,000 ML IV STA (12:06)
[2019-07-15] MEDS ORDERED: DEXAMETHASONE 10 MG/ML 1 ML INJ IV ONE (12:30)
[2019-07-15] MEDS: SODIUM CHLORIDE 0.9% 1L BAG IV* STA ×2 (13:29→13:43)
[2019-07-15] MEDS ORDERED: CEFTRIAXONE 1 GM/50 ML (PMX) 50 ML IVPB ONE (14:00)
[2019-07-15] MEDS ORDERED: SODIUM CHLORIDE 0.9% 1L BAG IV* STA (14:49)
[2019-07-15] MEDS ORDERED: IPRATROPIUM (NEB) 0.5 MG/2.5 ML AMP HHN ONE (15:00)
[2019-07-15 16:20] VITALS: BP 136/83; PULSE 63; RESP 20
== END 2019-07-15 16:29 | disposition home or self-care (01) ==
LOC: FTE 11:22
DX: R05 Cough (principal); F17.210 Nicotine dependence, cigarettes, uncomplicated; R50.9 Fever, unspecified
CPT/HCPCS: 36415; 71045; 80053; 81003; 83605; 83690; 84484; 85025; 85378; 87040; 87086; 93005; 94640; 94664; 96361; 96365; 96375; J0696; J1100; J7030; Z7502; Z7610